=== PATIENT | female | born 1980 | race Hispanic/Latino ===

== ENCOUNTER 2018-06-21 12:21 | Emergency (ER) | payer SELFPAY ==
[2018-06-21 13:38] LABS: #Basophils 0.1 thou/uL (0.0-0.2); #Eosinphils 0.1 thou/uL (0.0-0.7); #Lymphocytes 1.6 thou/uL (1.20-3.40); #Monocytes 0.4 thou/uL (0.11-0.59); #Neutrophils 2.5 thou/uL (1.40-6.50); %Basophils 1.7 % (0.0-1.0); %Eosinophils 1.6 % (0.0-10.0); %Lymphocytes 35.2 % (21.0-51.0); %Monocytes 7.7 % (0.0-10.0); %Neutrophils 53.9 % (42.0-75.0); Mean Corpuscular HGB CONC 32.2 g/dL (32.0-36.0); Mean Corpuscular Hemoglobin 29.8 pg (27.0-31.0); Mean Corpuscular Volume 92.5 fL (78.0-98.0); Mean Platelet Volume 7.7 fL (7.4-10.4); Platelet Count 301 thou/uL (130-400); RBC Distribution Width 12.7 % (11.5-14.5); Red Blood Cell (RBC) Count 4.02 mill/uL (4.20-5.40); White Blood Cell (WBC) Count 4.6 thou/uL (4.8-10.8)
[2018-06-21 13:42] LABS: Bilirubin Small (Negative); Blood, Urine Moderate (Negative); Clarity CLOUDY (Clear); Glucose, Urine (Dipstick) Negative (Negative); Leukocyte Moderate (Negative); Nitrite Negative (Negative); Protein, Urine (Dipstick) Negative (Neg-Trace); Specific Gravity, Urine 1.021 (1.002-1.036); pH, Urine 5.5 (5.0-9.0)
[2018-06-21 13:45] LABS: Pregnancy Test - Urine (BHCG) Negative (Negative); Pregu Control Background? CLEAR/WHITE (CLR/WHITE); Pregu Control Bar Appear? YES (CONTROL BAR); Specific Gravity 1.021 (1.002-1.036)
[2018-06-21 13:46] LABS: Bacteria/HPF 4+ HPF (None Seen); Hyaline Casts/LPF 4-6 HYALINE CAST LPF (0-3 Hyaline); Pathc Cast-AUWi Flag 0.58 (0-2.49); Squamous Epithelial 0-3 HPF (0-3); WBC/HPF 21-50 HPF (0-3)
[2018-06-21 14:00] LABS: ALT (SGPT) 15 U/L (8-55); AST (SGOT) 17 U/L (5-34); Albumin 4.8 g/dL (3.5-5.0); Alkaline Phosphatase 77 U/L (40-150); Anion Gap 11 mmol/L (10-20); BUN (Urea Nitrogen) 7 mg/dL (7.0-18.7); Bilirubin, Total 0.4 mg/dL (0.2-1.2); Calc. Creatinine Clearance 0 mL/min (70-130); Calcium 9.8 mg/dL (7.8-10.44); Carbon Dioxide 27 mmol/L (22-29); Chloride 104 mmol/L (98-107); Estimated GFR-MDRD 86; Globulin 3.2 g/dL (2.4-3.5); Glucose 89 mg/dL (70-105); Potassium 3.8 mmol/L (3.5-5.1); Sodium 138 mmol/L (136-145)
[2018-06-21] MEDS ORDERED: clonazePAM 1 MG TAB ONE (16:16)
== END 2018-06-21 16:23 | disposition home or self-care (01) ==
LOC: ERS 12:21
DX: F11.23 Opioid dependence with withdrawal (principal); N30.01 Acute cystitis with hematuria; F17.210 Nicotine dependence, cigarettes, uncomplicated
CPT/HCPCS: 36415; 80053; 81003; 81015; 81025; 85025; 99284

== ENCOUNTER 2020-12-10 11:13 | Emergency (ER) | payer SELFPAY | END 2020-12-10 13:59 | disposition home or self-care (01) | LOC: ERS 11:13 | DX: F41.9 Anxiety disorder, unspecified (principal); R23.4 Changes in skin texture | CPT/HCPCS: 36415; 80053; 81003; 81015; 81025; 85025; 99283 ==

== ENCOUNTER 2021-04-03 18:33 | Inpatient (IN) | payer SELFPAY ==
[2021-04-03 19:42] LABS: BHCG - Serum Negative (NEGATIVE); Pregs Control Background? CLEAR/WHITE (CLR/WHITE); Pregs Control Bar Appear? YES (CONTROL BAR)
[2021-04-03 20:12] LABS: #Lymphocytes 0.7 thou/uL (1.20-3.40); #Monocytes 0.5 thou/uL (0.11-0.59); #Neutrophils 3.7 thou/uL (1.40-6.50); %Basophils 0.8 % (0.0-1.0); %Eosinophils 0.6 % (0.0-10.0); %Lymphocytes 13.8 % (21.0-51.0); %Monocytes 9.4 % (0.0-10.0); %Neutrophils 75.3 % (42.0-75.0); Hemoglobin 11.8 g/dL (12.0-16.0); Mean Corpuscular Hemoglobin 32.7 pg (27.0-31.0); Mean Corpuscular Volume 96.1 fL (78.0-98.0); Mean Platelet Volume 9.2 fL (7.4-10.4); Platelet Count 84 thou/uL (130-400); Platelet Morphology Comment Appears Decreased; RBC Distribution Width 15.9 % (11.5-14.5); RBC Morphology Normal; Red Blood Cell (RBC) Count 3.61 mill/uL (4.20-5.40); White Blood Cell (WBC) Count 4.9 thou/uL (4.8-10.8)
[2021-04-03 20:20] LABS: ALT (SGPT) 119 U/L (8-55); AST (SGOT) 366 U/L (5-34); Albumin 4.8 g/dL (3.5-5.0); Alkaline Phosphatase 562 U/L (40-110); Anion Gap 22 mmol/L (10-20); BUN (Urea Nitrogen) 6 mg/dL (7.0-18.7); Bilirubin, Total 5.4 mg/dL (0.2-1.2); Calc. Creatinine Clearance 0 mL/min (70-130); Calcium 9.8 mg/dL (7.8-10.44); Carbon Dioxide 23 mmol/L (22-29); Chloride 98 mmol/L (98-107); Globulin 3.7 g/dL (2.4-3.5); Glucose 118 mg/dL (70-105); Potassium 3.7 mmol/L (3.5-5.1); Protein, Total 8.5 g/dL (6.0-8.3); Sodium 139 mmol/L (136-145)
[2021-04-03] MEDS ORDERED: Lorazepam 2 MG/ML VIAL ONE (20:58)
[2021-04-03] MEDS ORDERED: Cefepime 2 GM VIAL ONE (21:45)
[2021-04-03 22:06] LABS: Bilirubin Negative (Negative); Blood, Urine Negative (Negative); Clarity Clear (Clear); Glucose, Urine (Dipstick) Normal (Negative); Ketone, Urine Trace mg/dL (Negative); Leukocyte Negative Leu/uL (Negative); Nitrite Negative (Negative); Protein, Urine (Dipstick) Negative (Neg-Trace); Specific Gravity, Urine 1.007 (1.002-1.036); Urobilinogen Normal mg/dL (Less than 2)
[2021-04-03] MEDS ORDERED: Vancomycin 1 GM/200 ML BAG ONE (22:13)
[2021-04-03 22:23] LABS: Lactic Acid 1.5 mmol/L (0.5-2.2)
[2021-04-03] MEDS ORDERED: chlordiazePOXIDE HCl 25 MG CAP PO SCH (22:30)
[2021-04-04 00:06] VITALS: BMI 24.7
[2021-04-04] MEDS ORDERED: Ondansetron ODT 4 MG TAB PO PRN ×2 (00:07→00:17)
[2021-04-04] MEDS ORDERED: Acetaminophen 650 MG Suppository PR PRN (00:07)
[2021-04-04] MEDS ORDERED: Ondansetron PF 4 MG/2 ML Vial IVP PRN (00:07)
[2021-04-04] MEDS ORDERED: Sodium Chloride 0.9% 1,000 ML IV SCH (00:15)
[2021-04-04] MEDS ORDERED: Lorazepam 2 MG/ML VIAL IM PRN (00:17)
[2021-04-04] MEDS ORDERED: Electrolyte Replacement Protocol 1 EACH FS SCH (00:30)
[2021-04-04] MEDS: Acetaminophen 325 MG TAB PO PRN ×2 (00:53→20:29)
[2021-04-04] MEDS: Lorazepam 1 MG TAB PO SCH ×3 (00:53→12:16)
[2021-04-04] MEDS: Sodium Chloride 0.9% 1,000 ML IV SCH ×2 (00:54→10:22)
[2021-04-04] MEDS: Thiamine HCl 200 MG/2 ML VIAL SLOW IVP SCH (01:41)
[2021-04-04 02:03] LABS: Phosphorus 2.4 mg/dL (2.3-4.7)
[2021-04-04 02:04] LABS: Bilirubin, Direct 3.4 mg/dL (0.1-0.3); Bilirubin, Total 4.8 mg/dL (0.2-1.2)
[2021-04-04 02:08] LABS: Magnesium 0.9 mg/dL (1.6-2.6)
[2021-04-04] MEDS ORDERED: Magnesium 2 GM/50 ML 2 GM in Premix Bag 1 BAG IVPB SCH (02:45)
[2021-04-04] MEDS ORDERED: Magnesium Sulfate 4 GM in Sodium Chloride 0.9% 250 ML 250 ML IVPB SCH (03:00)
[2021-04-04] MEDS ORDERED: Lorazepam 2 MG/ML VIAL SLOW IVP PRN (03:00)
[2021-04-04 05:18] LABS: #Lymphocytes 0.6 thou/uL (1.20-3.40); #Monocytes 0.2 thou/uL (0.11-0.59); #Neutrophils 2.1 thou/uL (1.40-6.50); %Basophils 1.2 % (0.0-1.0); %Eosinophils 1.1 % (0.0-10.0); %Lymphocytes 19.7 % (21.0-51.0); %Monocytes 7.9 % (0.0-10.0); %Neutrophils 70.1 % (42.0-75.0); Hemoglobin 10.8 g/dL (12.0-16.0); Mean Corpuscular HGB CONC 32.8 g/dL (32.0-36.0); Mean Corpuscular Hemoglobin 31.9 pg (27.0-31.0); Mean Corpuscular Volume 97.2 fL (78.0-98.0); Mean Platelet Volume 9.3 fL (7.4-10.4); Platelet Count 68 thou/uL (130-400); Red Blood Cell (RBC) Count 3.39 mill/uL (4.20-5.40); White Blood Cell (WBC) Count 3.2 thou/uL (4.8-10.8)
[2021-04-04 05:44] LABS: ALT (SGPT) 86 U/L (8-55); AST (SGOT) 244 U/L (5-34); Albumin 3.5 g/dL (3.5-5.0); Alkaline Phosphatase 406 U/L (40-110); Anion Gap 15 mmol/L (10-20); BUN (Urea Nitrogen) 7 mg/dL (7.0-18.7); Bilirubin, Direct 2.8 mg/dL (0.1-0.3); Bilirubin, Total 4.3 mg/dL (0.2-1.2); Calc. Creatinine Clearance 115 mL/min (70-130); Calcium 8.6 mg/dL (7.8-10.44); Carbon Dioxide 23 mmol/L (22-29); Chloride 104 mmol/L (98-107); Glucose 95 mg/dL (70-105); Magnesium 1.8 mg/dL (1.6-2.6); Potassium 3.2 mmol/L (3.5-5.1); Protein, Total 6.9 g/dL (6.0-8.3); Sodium 139 mmol/L (136-145)
[2021-04-04] MEDS ORDERED: chlordiazePOXIDE HCl 25 MG CAP PO SCH (06:00)
[2021-04-04] MEDS ORDERED: Piperacillin/Tazobactam 3.375 GM in Sodium Chloride 0.9% 100 ML IVPB SCH ×3 (06:00→10:00)
[2021-04-04] MEDS ORDERED: Potassium Chloride 20 MEQ TAB PO SCH (07:00)
[2021-04-04] MEDS ORDERED: Cefepime 2 GM in Sodium Chloride 0.9% 100 ML IVPB SCH (09:00)
[2021-04-04] MEDS ORDERED: Enoxaparin Sodium 40 MG/0.4 ML SYRINGE SC SCH (09:00)
[2021-04-04] MEDS: Folic Acid 1 MG TAB PO SCH (10:20)
[2021-04-04] MEDS: Multivit, Therapeutic 1 TAB PO SCH (10:20)
[2021-04-04 11:45] LABS: Amphetamine Not Detected (NotDetected); Barbiturates Screen Not Detected (NotDetected); Benzodiazepine Screen Detected (NotDetected); Cocaine Metabolite Screen Not Detected (NotDetected); Methadone Not Detected (NotDetected); Methamphetamine Not Detected (NotDetected); Opiate Screen Not Detected (NotDetected); Oxycodone Screen Not Detected (NotDetected); Phencyclidine (PCP) Not Detected (NotDetected); THC/Cannabinoid Screen Not Detected (NotDetected); Tricyclic Screen Not Detected (NotDetected)
[2021-04-04 11:55] LABS: SARS-CoV-2 PCR by NAA Not Detected (NotDetected)
[2021-04-04 13:47] LABS: Thyroid Stimulating Hormone 2.3627 uIU/mL (0.35-4.94)
[2021-04-04] MEDS ORDERED: Furosemide 40 MG TAB PO SCH (14:00)
[2021-04-04] MEDS: Digoxin 0.5 MG/2 ML AMP SLOW IVP SCH ×2 (14:41→16:09)
[2021-04-04] MEDS: Furosemide 40 MG/4 ML VIAL SLOW IVP SCH ×2 (14:42→18:26)
[2021-04-04] MEDS ORDERED: Digoxin 0.25 MG TAB PO SCH (17:30)
[2021-04-04] MEDS: Lorazepam 1 MG TAB PO PRN ×2 (18:25→22:56)
[2021-04-04] MEDS: Diazepam 5 MG TAB PO SCH (20:31)
[2021-04-04] MEDS: Melatonin 3 MG TAB PO PRN (22:52)
[2021-04-05] MEDS: Thiamine HCl 200 MG/2 ML VIAL SLOW IVP SCH (00:46)
[2021-04-05 05:07] LABS: #Eosinphils 0.1 thou/uL (0.0-0.7); #Lymphocytes 1.1 thou/uL (1.20-3.40); #Monocytes 0.3 thou/uL (0.11-0.59); #Neutrophils 3.2 thou/uL (1.40-6.50); %Basophils 0.3 % (0.0-1.0); %Eosinophils 3.1 % (0.0-10.0); %Lymphocytes 22.4 % (21.0-51.0); %Monocytes 6.7 % (0.0-10.0); %Neutrophils 67.5 % (42.0-75.0); Mean Corpuscular HGB CONC 31.7 g/dL (32.0-36.0); Mean Corpuscular Hemoglobin 31.1 pg (27.0-31.0); Mean Platelet Volume 10.2 fL (7.4-10.4); Platelet Count 78 thou/uL (130-400); RBC Distribution Width 16.1 % (11.5-14.5); Red Blood Cell (RBC) Count 3.86 mill/uL (4.20-5.40); White Blood Cell (WBC) Count 4.7 thou/uL (4.8-10.8)
[2021-04-05 05:28] LABS: Anion Gap 17 mmol/L (10-20); BUN (Urea Nitrogen) 13 mg/dL (7.0-18.7); Calc. Creatinine Clearance 107 mL/min (70-130); Calcium 9.3 mg/dL (7.8-10.44); Carbon Dioxide 22 mmol/L (22-29); Chloride 100 mmol/L (98-107); Glucose 75 mg/dL (70-105); Magnesium 1.9 mg/dL (1.6-2.6); Potassium 3.2 mmol/L (3.5-5.1); Sodium 136 mmol/L (136-145)
[2021-04-05] MEDS ORDERED: Magnesium 2 GM/50 ML 2 GM in Premix Bag 1 BAG IVPB SCH (07:00)
[2021-04-05] MEDS ORDERED: Potassium Chloride 20 MEQ TAB PO SCH (07:00)
[2021-04-05] MEDS ORDERED: Spironolactone 25 MG TAB PO SCH (08:00)
[2021-04-05] MEDS: Multivit, Therapeutic 1 TAB PO SCH (08:37)
[2021-04-05] MEDS: Diazepam 5 MG TAB PO SCH ×2 (08:37→20:36)
[2021-04-05] MEDS: Magnesium Oxide 400 MG TAB PO SCH (08:38)
[2021-04-05] MEDS: Folic Acid 1 MG TAB PO SCH (08:38)
[2021-04-05] MEDS: Digoxin 0.25 MG TAB PO SCH (08:39)
[2021-04-05] MEDS: Spironolactone 25 MG TAB PO SCH (08:40)
[2021-04-05] MEDS: Acetaminophen 325 MG TAB PO PRN ×3 (08:45→18:21)
[2021-04-05] MEDS ORDERED: FLU VACC QS2021-22(6MOS UP)/PF 60 MCG/0.5 ML SYRINGE IM ONE (09:00)
[2021-04-05] MEDS ORDERED: Furosemide 20 MG TAB PO SCH (09:00)
[2021-04-05] MEDS: Lorazepam 1 MG TAB PO PRN ×2 (10:11→14:32)
[2021-04-05] MEDS ORDERED: Furosemide 40 MG/4 ML VIAL SLOW IVP SCH (14:00)
[2021-04-05] MEDS: Melatonin 3 MG TAB PO PRN (20:36)
[2021-04-06] MEDS ORDERED: Lorazepam 0.5 MG TAB PO SCH (01:00)
[2021-04-06] MEDS: Thiamine HCl 200 MG/2 ML VIAL SLOW IVP SCH (02:46)
[2021-04-06] MEDS: Spironolactone 25 MG TAB PO SCH (08:44)
[2021-04-06] MEDS: Diazepam 5 MG TAB PO SCH ×2 (08:44→21:50)
[2021-04-06] MEDS: Folic Acid 1 MG TAB PO SCH (08:44)
[2021-04-06] MEDS: Lorazepam 1 MG TAB PO PRN ×3 (08:44→21:50)
[2021-04-06] MEDS: Multivit, Therapeutic 1 TAB PO SCH (08:45)
[2021-04-06] MEDS: Magnesium Oxide 400 MG TAB PO SCH (08:45)
[2021-04-06] MEDS: Digoxin 0.25 MG TAB PO SCH (08:45)
[2021-04-06 10:47] LABS: Anion Gap 16 mmol/L (10-20); BUN (Urea Nitrogen) 19 mg/dL (7.0-18.7); Calc. Creatinine Clearance 118 mL/min (70-130); Calcium 9.4 mg/dL (7.8-10.44); Carbon Dioxide 21 mmol/L (22-29); Chloride 100 mmol/L (98-107); Glucose 94 mg/dL (70-105); Potassium 3.8 mmol/L (3.5-5.1); Sodium 133 mmol/L (136-145)
[2021-04-07] MEDS ORDERED: Famotidine 20 MG TAB PO SCH (04:30)
[2021-04-07 05:23] LABS: Anion Gap 13 mmol/L (10-20); BUN (Urea Nitrogen) 18 mg/dL (7.0-18.7); Calc. Creatinine Clearance 125 mL/min (70-130); Calcium 9.4 mg/dL (7.8-10.44); Carbon Dioxide 22 mmol/L (22-29); Chloride 104 mmol/L (98-107); Glucose 109 mg/dL (70-105); Potassium 3.9 mmol/L (3.5-5.1); Sodium 135 mmol/L (136-145)
[2021-04-07] MEDS: Cyclobenzaprine 10 MG TAB PO PRN ×2 (05:24→15:25)
[2021-04-07] MEDS: Multivit, Therapeutic 1 TAB PO SCH (08:51)
[2021-04-07] MEDS: Digoxin 0.25 MG TAB PO SCH (08:51)
[2021-04-07] MEDS: Spironolactone 25 MG TAB PO SCH (08:51)
[2021-04-07] MEDS: Magnesium Oxide 400 MG TAB PO SCH (08:51)
[2021-04-07] MEDS: Folic Acid 1 MG TAB PO SCH (08:52)
[2021-04-07] MEDS: Diazepam 5 MG TAB PO SCH ×2 (08:52→21:10)
[2021-04-07] MEDS: Thiamine 100 MG TAB PO SCH (09:52)
[2021-04-07] MEDS: Lorazepam 0.5 MG TAB PO PRN ×2 (13:21→23:50)
[2021-04-07] MEDS: Carvedilol 3.125 MG TAB PO SCH (16:07)
[2021-04-07] MEDS: Famotidine 20 MG TAB PO SCH (21:11)
[2021-04-07] MEDS: Melatonin 3 MG TAB PO PRN (22:33)
[2021-04-08] MEDS: Spironolactone 25 MG TAB PO SCH (08:00)
[2021-04-08] MEDS: Digoxin 0.25 MG TAB PO SCH (08:00)
[2021-04-08] MEDS: Carvedilol 3.125 MG TAB PO SCH (08:01)
[2021-04-08] MEDS: Multivit, Therapeutic 1 TAB PO SCH (08:01)
[2021-04-08] MEDS: Famotidine 20 MG TAB PO SCH (08:01)
[2021-04-08] MEDS: Magnesium Oxide 400 MG TAB PO SCH (08:03)
[2021-04-08] MEDS: Diazepam 5 MG TAB PO SCH (08:03)
[2021-04-08] MEDS: Thiamine 100 MG TAB PO SCH (08:04)
[2021-04-08] MEDS: Folic Acid 1 MG TAB PO SCH (08:05)
[2021-04-08 09:14] LABS: Anion Gap 15 mmol/L (10-20); BUN (Urea Nitrogen) 15 mg/dL (7.0-18.7); Calc. Creatinine Clearance 123 mL/min (70-130); Calcium 9.4 mg/dL (7.8-10.44); Carbon Dioxide 19 mmol/L (22-29); Chloride 107 mmol/L (98-107); Glucose 98 mg/dL (70-105); Potassium 4.4 mmol/L (3.5-5.1); Sodium 137 mmol/L (136-145)
[2021-04-08 10:03] VITALS: BP 101/56; TEMP 97.9
== END 2021-04-08 11:00 | disposition home or self-care (01) | DRG 314 ==
LOC: ERS 18:33 → 2NO 22:13
PROVIDERS: ADMIT Student in an Organized Health Care Education/Training Program; ATTEND Internal Medicine
PROC: HZ2ZZZZ Detoxification Services for Substance Abuse Treatment (ICD-10-PCS; principal; 2021-04-03)
DX: I42.6 Alcoholic cardiomyopathy (principal); I50.21 Acute systolic (congestive) heart failure; F10.139 Alcohol abuse with withdrawal, unspecified; G93.40 Encephalopathy, unspecified; Z20.822 Contact with and (suspected) exposure to COVID-19; K70.10 Alcoholic hepatitis without ascites; D69.59 Other secondary thrombocytopenia; F41.9 Anxiety disorder, unspecified; F32.A Depression, unspecified; I08.1 Rheumatic disorders of both mitral and tricuspid valves; K76.0 Fatty (change of) liver, not elsewhere classified; Z28.21 Immunization not carried out because of patient refusal; Z86.16 Personal history of COVID-19; Z90.49 Acquired absence of other specified parts of digestive tract; Z87.891 Personal history of nicotine dependence; Z79.899 Other long term (current) drug therapy
CPT/HCPCS: 36415; 71045; 71275; 76705; 80048; 80053; 80306; 81003; 82247; 82306; 82607; 82746; 83605; 83690; 83735; 83880; 84100; 84443; 84484; 84703; 85025; 87040; 87086; 93005; 93306; 96365; 96367; 96375; J0692; J1160; J1940; J2060; J2543; J3370; J3411; J3475; J3490; J7050; U0003; U0005

== ENCOUNTER 2023-04-17 14:05 | Emergency (ER) | payer OTHER, SELFPAY | END 2023-04-17 15:32 | disposition home or self-care (01) | LOC: ERS 14:05 | DX: S39.012A Strain of muscle, fascia and tendon of lower back, initial encounter (principal); F17.210 Nicotine dependence, cigarettes, uncomplicated; X50.0XXA Overexertion from strenuous movement or load, initial encounter; Y92.512 Supermarket, store or market as the place of occurrence of the external cause | CPT/HCPCS: 99283 ==